=== PATIENT | male | born 2000 | race Caucasian/White ===

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

== ENCOUNTER 2018-09-30 20:45 | Emergency (ER) | payer BC ==
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
[2018-09-30] MEDS ORDERED: fentaNYL 100 MCG/2 ML SDV IVPUSH ONE ×2 (20:57→22:27)
[2018-09-30] MEDS ORDERED: Lactated Ringers 1,000 ML IV ONE (20:57)
[2018-09-30] MEDS ORDERED: Ondansetron 4 MG/2 ML SDV IVPUSH ONE (20:57)
[2018-09-30] MEDS: Sodium Chloride 0.9% 10 ML Syringe FLUSH PRN ×2 (21:10→22:36)
[2018-09-30 23:50] VITALS: BP 98/55; PULSE 56
== END 2018-09-30 23:15 | disposition home or self-care (01) ==
LOC: LL.ED 20:45
DX: S82.841A Displaced bimalleolar fracture of right lower leg, initial encounter for closed fracture (principal); S82.831A Other fracture of upper and lower end of right fibula, initial encounter for closed fracture; F90.2 Attention-deficit hyperactivity disorder, combined type; J45.20 Mild intermittent asthma, uncomplicated; I95.89 Other hypotension; R00.1 Bradycardia, unspecified; Z71.6 Tobacco abuse counseling; F17.210 Nicotine dependence, cigarettes, uncomplicated; Z88.1 Allergy status to other antibiotic agents; Z88.0 Allergy status to penicillin
CPT/HCPCS: 29515; 73610; 96361; 96374; 96375; 96376; 99283; J2405; J3010; J7120

== ENCOUNTER 2021-02-19 20:28 | Emergency (ER) | payer BC ==
[2021-02-19 20:37] VITALS: BP 120/67; PULSE 56
[2021-02-19] MEDS ORDERED: Sodium Chloride 0.9% 10 ML Syringe FLUSH PRN (20:56)
[2021-02-19] MEDS ORDERED: diphenhydrAMINE 50 MG/ML SDV IVPUSH ONE (20:56)
[2021-02-19] MEDS ORDERED: Ketorolac 30 MG/ML SDV IVPUSH ONE (20:56)
[2021-02-19] MEDS ORDERED: Lactated Ringers 1,000 ML IV ONE (20:56)
[2021-02-19] MEDS ORDERED: Metoclopramide 10 MG/2 ML SDV IVPUSH ONE (20:56)
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
[2021-02-19 21:22] LABS: ANION GAP 11.3 meq/L (7-15); CHLORIDE,CL 105 mmol/L (98-107); SODIUM,NA 142 mmol/L (136-145)
== END 2021-02-19 22:25 | disposition home or self-care (01) ==
LOC: LL.ED 20:28
DX: G43.909 Migraine, unspecified, not intractable, without status migrainosus (principal); J45.909 Unspecified asthma, uncomplicated; Z88.0 Allergy status to penicillin; Z79.899 Other long term (current) drug therapy
CPT/HCPCS: 36415; 70450; 80053; 85025; 87426; 96374; 96375; 99284-25; J1200; J1885; J2765; J7120

== ENCOUNTER 2022-11-08 19:32 | Emergency (ER) | payer BC ==
[2022-11-08 19:37] VITALS: BP 124/62; PULSE 56
[2022-11-08] MEDS ORDERED: Tetracaine HCl/PF 0.5% 4 ML Bottle ONE (20:14)
[2022-11-08] MEDS ORDERED: traMADol 50 MG Tab PO ONE (20:19)
[2022-11-08] MEDS ORDERED: Erythromycin Base 0.5% Ophth Oint 3.5 GM Tube EYELF ONE (20:29)
== END 2022-11-08 20:40 | disposition home or self-care (01) ==
LOC: LL.ED 19:32
DX: S00.212A Abrasion of left eyelid and periocular area, initial encounter (principal); J45.909 Unspecified asthma, uncomplicated; F17.210 Nicotine dependence, cigarettes, uncomplicated; Z88.0 Allergy status to penicillin; W22.8XXA Striking against or struck by other objects, initial encounter
CPT/HCPCS: 99283; A9270; J3490

== ENCOUNTER 2023-06-11 17:14 | Emergency (ER) | payer BC ==
[2023-06-11 17:19] VITALS: BP 135/63; PULSE 68
[2023-06-11] MEDS: Lidocaine 1% 5 ML VIAL INJECT ONE ×3 (17:35→17:41)
[2023-06-11] MEDS: Bacitracin Oint 1 GM U/D Packet TOP ONE (17:37)
[2023-06-11] MEDS: Diphtheria,Pertussis(Acell),Tetanus Vaccine 0.5 ML Syringe IM ONE (17:52)
== END 2023-06-11 18:12 | disposition home or self-care (01) ==
LOC: LL.ED 17:14
DX: S81.812A Laceration without foreign body, left lower leg, initial encounter (principal); Z88.0 Allergy status to penicillin; Z87.891 Personal history of nicotine dependence; Z23 Encounter for immunization; X58.XXXA Exposure to other specified factors, initial encounter
CPT/HCPCS: 12002; 90471; 90715; 99282-25; J3490

== ENCOUNTER 2023-11-28 11:00 | Emergency (ER) | payer BC, OTHER ==
[2023-11-28 12:34] VITALS: BP 113/80; PULSE 85
== END 2023-11-28 12:30 | disposition home or self-care (01) ==
LOC: LL.ED 11:00
DX: H61.22 Impacted cerumen, left ear (principal); J45.909 Unspecified asthma, uncomplicated; F17.210 Nicotine dependence, cigarettes, uncomplicated; Z88.1 Allergy status to other antibiotic agents; Z88.0 Allergy status to penicillin; Z91.048 Other nonmedicinal substance allergy status
CPT/HCPCS: 69209; 99283; 99283-25